=== PATIENT | male | born 1985 | race Caucasian/White ===

== ENCOUNTER 2019-03-08 19:03 | Emergency (ER) | payer SELFPAY ==
[~2019-03-08] VITALS: Ht 180.3 cm; Wt 77.3 kg
[2019-03-08 19:27] VITALS: Ht 180.3 cm; Wt 77.3 kg
[2019-03-08 20:30] VITALS: BP 110/73
== END 2019-03-08 20:32 | disposition home or self-care (01) ==
LOC: D.ER 19:03
DX: S61.411A Laceration without foreign body of right hand, initial encounter (principal); X58.XXXA Exposure to other specified factors, initial encounter